=== PATIENT | male | born 1935 | race Caucasian/White ===

== ENCOUNTER → 2016-07-08 | Outpatient (CLI) | payer MEDICARE, OTHER | END | disposition home or self-care (01) | LOC: PCVCCLINIC 14:55 | PROVIDERS: ATTEND Internal Medicine Cardiovascular Disease | DX: I65.23 Occlusion and stenosis of bilateral carotid arteries (principal); I71.4 Abdominal aortic aneurysm, without rupture; I10 Essential (primary) hypertension; E78.5 Hyperlipidemia, unspecified; I25.10 Atherosclerotic heart disease of native coronary artery without angina pectoris; R53.83 Other fatigue; R09.89 Other specified symptoms and signs involving the circulatory and respiratory systems; I25.5 Ischemic cardiomyopathy; Z82.49 Family history of ischemic heart disease and other diseases of the circulatory system | CPT/HCPCS: 76770; 80061; 93005; 93306; 93880; 93975; 93978; G0463 ==

== ENCOUNTER → 2016-07-11 | Outpatient (CLI) | payer MEDICARE, OTHER ==
[~2016-07-11] MED LIST: CEFAZOLIN 2GM PREMIX 50 ML IV ONE; DIAZEPAM 10 MG TABLET ONE; FENTANYL PF 100 MCG/2 ML VIAL. ONE; HEPARIN for ARTERIAL LINE 1,500 ML ONE; IOHEXOL 300 MG/ML 100ML VIAL. ONE; IOHEXOL 350 MG/ML 100ML VIAL. ONE; IV NORMAL SALINE 1000ML BAG 1,000 ML ONE; LIDOCAINE 1% Multi-Dose 20 ML VIAL. ONE; MIDAZOLAM HCL 2 MG/2 ML VIAL. ONE; hydrALAZINE 20 MG/ML VIAL. ONE
== END ==
LOC: PCVCINTER 09:36
PROVIDERS: ATTEND Nuclear Medicine Nuclear Cardiology
DX: I71.4 Abdominal aortic aneurysm, without rupture (principal); I70.1 Atherosclerosis of renal artery; I15.0 Renovascular hypertension; I73.9 Peripheral vascular disease, unspecified
CPT/HCPCS: 36245; 36252; 37242; 75630; 75726; 76937; 93458; C1751; C1769; C1887; C1894; J0360; J0690; J2250; J3010; J7030; Q9967